=== PATIENT | male | born 1965 | race Two or more races ===

== ENCOUNTER → 2017-04-05 | Day surgery (SDC) | payer OTHER ==
[~2017-04-05] MED LIST: NO MEDICATIONS
--- NOTE | ~2017-04-05 | OR ---
Unit #: [id number] #: [id number] Patient: THUY FREEMAN [id number] [address] [address] [id number] O MR#: [id number] NAME: THUY FREEMAN ROOM: Date of Procedure: 04/05/2017 Admission Date: 04/05/2017 Surgeon: Mark Belle M.D. : 1965 Attending Physician: Mark Belel M.D. OPERATIVE REPORT PROCEDURE PERFORMED Colonoscopy with snare polypectomy. INDICATIONS FOR PROCEDURE A 51-year-old gentleman with left upper quadrant and left lower quadrant pain, average risk for colorectal cancer, here for colonoscopy. MEDICATIONS Monitored anesthesia. POSTOPERATIVE FINDINGS 1. Small 5 mm polyp, transverse colon, snared and sent for histopathology. 2. Good prep. 3. No colitis or other cause of pain established. PLAN CT scan of abdomen and pelvis for further evaluation. Further recommendations to follow. DESCRIPTION OF PROCEDURE The patient was explained of the procedure, risks, and benefits along with risks and benefits of anesthesia. He was brought to the endoscopy room. Propofol anesthesia was given. Rectal exam was done, which was normal. Colonoscope was lubricated, passed up the rectum, advanced under direct vision all the way to cecum. Cecum was identified by ileocecal valve and appendiceal orifice. Polyp seen in transverse colon was snared and sent for pathology. Prep was good. Colonic mucosa was otherwise normal. I retroflexed in the rectum, small hemorrhoids seen. Scope was gently pulled out. He tolerated it well. No major complications seen. Dictated by... Rachael Anderson/nba TD: 04/05/2017 14:19 JOB #: [id number] CC: Markel Alves A.P.R.N. Unit #: [id number] #: [id number] Patient: THUY FREEMAN OPERATIVE REPORT Page 1 of 1 X Mark Belle MD X PROCEDURE OPERATIVE NOTE
[2017-04-05 11:36] LABS: BASOPHIL% 0.6 % (0-2.5); EOSINOPHIL# 0.1 X10e3 (0-0.7); EOSINOPHIL% 1.4 % (0.0-7.0); HEMATOCRIT 45.4 % (38.0-50.0); HEMOGLOBIN 15.1 gm/dL (13.0-16.0); LYMPHOCYTE% 20.2 % (17.0-45.0); MEAN CELL VOLUME 91.1 FL (83-96); MEAN CORPUSCULAR HEMOGLOBIN 30.3 PG (28-34); MEAN CORPUSCULAR HGB CONC 33.2 g/dL (30-36); MONOCYTE# 0.3 X10e3 (0-1.0); MONOCYTE% 7.1 % (3.0-12.0); NEUTROPHIL# 3.3 X10e3 (1.5-7.1); NEUTROPHIL% 70.7 % (40-75); PLATELET COUNT 176 X10e3 (140-420); RED BLOOD COUNT 4.98 X10e (3.90-5.60); RED CELL DISTRIBUTION WIDTH 12.9 % (11.0-15.5); WHITE BLOOD COUNT 4.7 X10e3 (4.0-10.5)
[2017-04-05 11:41] LABS: DIFF IND NO
[2017-04-05 12:12] LABS: BILIRUBIN,TOTAL 0.9 mg/dL (0.2-2.0); BUN/CREATININE RATIO 12.22; CREATININE SERUM 0.9 mg/dL (0.6-1.4); GLOM FILT RATE Estimated 97.2 mL/min (>60); PROTEIN TOTAL SERUM 6.7 g/dL (6.0-8.3)
== END | disposition home or self-care (01) ==
LOC: COPS 07:31
PROVIDERS: Internal Medicine
DX: K63.5 Polyp of colon (principal); K64.9 Unspecified hemorrhoids; K21.9 Gastro-esophageal reflux disease without esophagitis
CPT/HCPCS: 80053; 82150; 83690; 85025; 88305

== ENCOUNTER → 2017-04-13 | Outpatient (CLI) | payer OTHER ==
--- NOTE | ~2017-04-13 | CT2 ---
[facility] A Service of [facility] RADIOLOGY TEXT RESULTS PATIENT: THUY FREEMAN LOCATION: [facility]AT : 61 UNIT #: [id number] AGE: [address]: Mark Belle MD SEX: M ORDER DR: [id number] [facility] [address]. [place], [place] [address] [id number] O MR#: [id number] Acc #: [id number] NAME: THUY FREEMAN : 1965 SEX: M STUDY DATE/TIME: 04/13/2017 13:18 UNIT: [facility] ROOM: STUDY DESCRIPTION: CT Abd and Pelv W Cont Attending Physician: Mark Belle M.D. Referring Physician: Mark Belle M.D. Ordering Physician: Mark Belle M.D. Primary Care Physician: Markel Alves A.P.R.N. MEDICAL IMAGING REPORT This report is preliminary unless electronic signature is present EXAM CT of the abdomen and pelvis. INDICATION Abdominal pain. This is located on the left side and has been present for a year. Patient also reports constipation for two days. TECHNIQUE Axial CT images were obtained from the dome of the diaphragm through the symphysis pubis following the administration of oral and intravenous contrast material. This CT exam was performed with one or more of the following radiation dose reduction techniques: automatic exposure control, adjustment of mA and/or kV according to patient size, and iterative reconstruction. FINDINGS Images through the lung bases demonstrates some bibasilar atelectasis. The patient has aneurysmal dilatation of the aortic root measuring around 4.7 cm, incompletely assessed on this examination. Stomach and proximal small bowel are within normal limits. Liver and gallbladder appear normal. Spleen and pancreas are within normal limits as are the adrenal glands. No suspicious renal masses are seen. There is no free fluid or adenopathy seen within the abdomen. There is no evidence of mechanical bowel obstruction. Prostate gland and urinary bladder appear normal. The patient does have fairly extensive fecal burden seen throughout the colon which is in keeping with a history of constipation, but again there is no evidence of janie obstruction. Review of bony windows does not demonstrate any aggressive osseous abnormalities. IMPRESSION [facility] A Service of [facility] RADIOLOGY TEXT RESULTS PATIENT: THUY FREEMAN LOCATION: [facility] : 61 UNIT #: [id number] AGE: [address]: Mark Belle MD SEX: M ORDER DR: 1. Patient does have fairly extensive fecal burden which would be in keeping with a history of constipation. There is no evidence of mechanical bowel obstruction. 2. Suspected aneurysmal dilatation of the aortic root measuring up to about 4.7 cm incompletely assessed on this study. This would be better assessed with dedicated CT angiography of the chest. Dictated by... Gabi Abdullahi M.D. THIS IS AN ELECTRONICALLY VERIFIED REPORT Gabi Abdullahi M.D. at 04/14/2017 12:47 PM AFF/tmw TD: 04/13/2017 21:04 JOB #: [id number] MEDICAL IMAGING REPORT Page 1 of 1 COPY
== END | disposition home or self-care (01) ==
LOC: CCAT 11:12
DX: R10.9 Unspecified abdominal pain (principal)
CPT/HCPCS: 74177; Q9967